=== PATIENT | male | born 1970 | race Caucasian/White ===

== ENCOUNTER 2016-09-22 09:22 | Emergency (ER) ==
[2016-09-22 09:51] LABS: MANUAL DIFF NEEDED? NO
[2016-09-22 09:52] LABS: BASO% 0.7 % (0.0-0.8); EOS# 0.15 X1000 (0.0-0.7); EOS% 3.6 % (0.0-10.0); HEMATOCRIT 39.5 % (42.0-52.0); LYMPH# 1.24 X1000 (1.2-3.4); LYMPH% 29.7 % (20.5-51.1); MCH 30.8 PG (27-31); MCHC 35.4 g/dL (33-37); MONO# 0.42 X1000 (0.11-0.59); MPV 10.9 FL (7.4-10.4); PLT 166 X1000 (130-400); RBC 4.54 XMIL (4.7-6.1)
[2016-09-22 09:57] LABS: URINE CULTURE NEEDED? NO; URINE MICRO REVIEW NEEDED? NO; URINE SOURCE CLEAN CATCH
[2016-09-22 10:00] LABS: BILIRUBIN URINE NEGATIVE (NEGATIVE); BLOOD URINE NEGATIVE (NEGATIVE); COLOR YELLOW; GLUCOSE URINE >1000 mg/dL (NEGATIVE); LEUKOCYTES URINE NEGATIVE (NEGATIVE); NITRITE URINE NEGATIVE (NEGATIVE); PH URINE 6.5; PROTEIN URINE TRACE mg/dL (NEGATIVE); SP GRAVITY URINE 1.028; TURBIDITY URINE CLEAR (CLEAR); UROBILINOGEN URINE NORMAL (NORMAL)
[2016-09-22 10:01] LABS: UR EPITHELIAL CELLS <10 /HPF (<10); URINE BACTERIA NEGATIVE /HPF; URINE RBC <10 /HPF (<10); URINE WBC <10 /HPF (<10)
[2016-09-22 10:10] LABS: AGAP 14; ALBUMIN 4.2 g/dL (3.5-5.0); ALKALINE PHOSPHATASE 111 U/L (32-122); AMYLASE 31 U/L (20-200); BUN 16 mg/dL (8-22); CALCIUM 8.6 mg/dL (8.8-10.2); CHLORIDE 100 mmol/L (98-107); COSMO 283; GOT 67 U/L (10-34); GPT 77 U/L (10-44); LIPASE 27 U/L (13-60); POTASSIUM 4.2 mmol/L (3.5-5.1); SODIUM 135 mmol/L (136-145); TCO2 21 mmol/L (25-35); TOTAL BILIRUBIN 0.36 mg/dL (0.20-1.00)
[2016-09-22] MEDS ORDERED: NS 1,000 ML IV ONE (10:25)
--- NOTE | 2016-09-22 10:30 | PROVIDER DOCUMENTATION ---
HPI-Abdominal Pain/GI Problem - General Source: patient - History of Present Illness-ABD Nature of Presenting Problems: Pt is a 46 yom who came to the ED with a cc of abdominal pain and constipation. Pt reports he has been constipated for 3-4 days and reports he had a colon resection in 2000. Pt reports he is unable to have a bowel movement. Abdominal Pain Onset Location: reports: LLQ Pain Radiation: reports: no radiation Quality of Pain: reports: cramping Severity in ED: reports: mild Onset/Duration: reports: 4 days ago Timing: reports: still present Activities at Onset: reports: none Modifying Factors: improves with: nothing Associated Symptoms: reports: constipation Last BM: 4 days ago Dark Stools Present?: reports: none noticed Rectal Bleeding: reports: none Rectal Pain: reports: none Emesis Description: reports: none Bruising or Bleeding Gums?: No Similar Symptoms Previously?: No Recently seen or treated by another doctor?: No <Socorro Mckeon - Last Filed: 09/22/16 10:24> <Jesus Thompson - Last Filed: 09/22/16 11:04> <Saloni Spears - Last Filed: 09/22/16 12:42> - General Chief Complaint: Abdominal Pain Stated Complaint: LOWER ABD PAIN Time Seen by Provider: 09/22/16 09:36 Allergies/Adverse Reactions: Patient Allergies Allergy/AdvReac Type Severity Reaction Status Date / Time No Known Allergies Allergy Verified 09/22/16 10:21 Home Medications: Home Medication List Medication Instructions Recorded Confirmed Last Taken Type Captopril 50 mg PO BID 10/05/12 09/22/16 09/22/16 08:00 History Ezetimibe [Zetia] 10 mg PO QHS 10/05/12 09/22/16 09/22/16 08:00 History Gabapentin [Neurontin] 900 mg PO BID 10/05/12 09/22/16 09/22/16 08:00 History Gemfibrozil [Lopid] 600 mg PO BID 10/05/12 09/22/16 09/22/16 08:00 History Isosorbide Mononitrate E.r. [Imdur] 60 mg PO DAILY 10/05/12 09/22/16 09/22/16 08 :00 History Omeprazole [Prilosec] 20 mg PO HS 10/05/12 09/22/16 09/21/16 22:00 History Rosuvastatin Calcium [Crestor] 40 mg PO QHS 10/05/12 09/22/16 09/21/16 22:00 History Hydrochlorothiazide 12.5 mg PO QAM 02/15/13 09/22/16 09/22/16 08:00 History Aspirin 2 tab PO DAILY 08/30/15 09/22/16 09/22/16 08:00 History Carvedilol [Coreg] 6.25 mg PO BID 08/30/15 09/22/16 09/22/16 08:00 History Insulin Glargine [Lantus] 60 unit SUBQ QHS 08/30/15 09/22/16 09/21/16 22:00 History Insulin Lispro [Humalog] 5 unit SUBQ BID 08/30/15 09/22/16 11/17/15 History Naproxen Sodium [Aleve] 220 mg PO BID 08/30/15 09/22/16 09/21/16 22:00 History Ondansetron [Zofran] 4 mg PO Q6H PRN PRN #15 tablet 09/22/16 Unknown Rx Peg 3350/Na Sulf,Bicarb,Cl/KCl 4,000 ml PO DIRECTED #1 bottle 09/22/16 Unknown Rx [Golytely] Review of Systems - Adult - REVIEW OF SYSTEMS - ADULT Constitutional: denies: chills, fever Eyes: reports: no symptoms reported Ears, Nose, Mouth & Throat: denies: epistaxis, mouth/dental pain Cardiovascular: reports: no symptoms reported Respiratory: denies: hemoptysis, wheezing Gastrointestinal: reports: abdominal pain, constipation. denies: diarrhea, nausea, vomiting Genitourinary: reports: no symptoms reported Musculoskeletal: reports: no symptoms reported Integumentary: reports: no symptoms reported Neurological: reports: no symptoms reported Psychiatric: reports: no symptoms reported Endocrine: reports: no symptoms reported Hematologic/Lymphatic: reports: no symptoms reported Allergic/Immunologic: reports: no symptoms reported All Other Systems: Reviewed and Negative <Socorro Mckeon - Last Filed: 09/22/16 10:24> Past History - Adult - PAST MEDICAL HISTORY-ADULT Review of Records: reports: Old Records Reviewed, Nursing Assessment Review Major Childhood Illnesses: reports: denies history Cardiovascular: reports: cardiac disease, CAD, HTN, other (triple bypass) Respiratory: reports: denies history Gastrointestinal: reports: denies history Obstetrical/Gynecological: reports: denies history Genitourinary: reports: kidney stones Musculoskeletal: reports: denies history Neurological: reports: CVA Endocrine/Immune: reports: Diabetes Other Conditions: reports: denies history - PRIOR SURGERIES/PROCEDURES Surgical/Procedure History: reports: bowel surgery - IMMUNIZATION STATUS Childhood Immunizations: See Nurse Assessment Flu Vaccine: See Nurse Assessment - FAMILY HISTORY Family History: reviewed, not pertinent <Socorro Mckeon - Last Filed: 09/22/16 10:24> Physical Exam-General - PHYSICAL EXAM-ADULT Initial Vital Signs Reviewed: Yes - CONSTITUTIONAL General Appearance: appears well, mild distress - EYES Eyes: PERRL/EOMI - HEAD, EARS, NOSE, MOUTH & THROAT HENMT: normocephalic/atraumatic, moist mucous membranes, normal ENT inspection, TMs normal, pharynx normal - NECK Neck: non-tender - RESPIRATORY Respiratory: chest non-tender, lungs clear - CARDIOVASCULAR Cardiovascular: normal peripheral pulses, regular rate, rhythm, no edema, no gallop, no JVD - GASTROINTESTINAL (ABDOMEN) Abdominal Exam: guarding, tenderness (LLQ) - MUSCULOSKELETAL Back Exam: normal inspection Extremity: normal gait - SKIN Integumentary: normal turgor, warm/dry - NEUROLOGIC Neurologic: grossly normal - PSYCHIATRIC Psych/Mental Status: normal mood/affect, normal thought content, normal thought process, oriented x 3 <Socorro Mckeon - Last Filed: 09/22/16 10:24> Progress - PLAN OF CARE/RESULTS Progress/Plan/Lab Results: Vital Signs - 24 hr 09/22/16 09:33 Temperature 97.6 F Pulse Rate 80 Respiratory 20 Rate Blood Pressure 148/87 O2 Sat by Pulse 99 Oximetry Orders Category Date Time Status NPO Diet 09/22/16 09:36 Active ABDOMEN FLAT/UPRIGHT [RAD] Stat Exams 09/22/16 09:[address] ABD/PELVIS W/ IV CONT ONLY [CT] Stat Exams 09/22/16 10:06 Ordered AMYLASE [CHEM] Stat Lab 09/22/16 09:39 Completed CBC WITH ELECTRONIC DIFF [HEME] Stat Lab 09/22/16 09:39 Completed COMPREHENSIVE METABOLIC PANEL [CHEM] Stat Lab 09/22/16 09:39 Completed LIPASE [CHEM] Stat Lab 09/22/16 09:39 Completed URINALYSIS W/POSS RFLX CULT [URINALYSIS] Stat Lab 09/22/16 09:44 Completed Laboratory Tests 09/22/16 09/22/16 09/22/16 09:39 09:39 09:44 WBC 4.18 L RBC 4.54 L Hgb 14.0 Hct 39.5 L MCV 87.0 MCH 30.8 MCHC 35.4 RDW Std Deviation 12.7 Plt Count 166 MPV 10.9 H Immature Gran % (Auto) 0.0 Neut % (Auto) 56.0 Lymph % (Auto) 29.7 [place] % (Auto) 10.0 H Eos % (Auto) 3.6 Baso % (Auto) 0.7 Immature Gran # (Auto) 0.00 Neut # (Auto) 2.34 Lymph # (Auto) 1.24 [place] # (Auto) 0.42 Eos # (Auto) 0.15 Baso # (Auto) 0.03 Sodium 135 L Potassium 4.2 Chloride 100 Carbon Dioxide 21 L Anion Gap 14 BUN 16 Creatinine 0.9 Estimated GFR/1.73 m2 > 60 BUN/Creatinine Ratio 18 Glucose 306 H Calculated Osmolality 283 Calcium 8.6 L Total Bilirubin 0.36 AST 67 H ALT 77 H Alkaline Phosphatase 111 Total Protein 8.0 Albumin 4.2 Globulin 3.8 Albumin/Globulin Ratio 1.1 Amylase 31 Lipase 27 Urine Source CLEAN CATCH Urine Color YELLOW Urine Turbidity CLEAR Urine pH 6.5 Ur Specific [place] 1.028 Urine Protein TRACE A Ur Glucose (Stick) >1000 A Ur Ketones (Stick) TRACE A Urine Blood NEGATIVE Urine Nitrite NEGATIVE Urine Bilirubin NEGATIVE Urobilinogen Dipstick NORMAL Urine Leukocytes NEGATIVE Urine WBC (Auto) <10 Urine RBC (Auto) <10 U Epithel Cells (Auto) <10 Urine Bacteria (Auto) NEGATIVE <Socorro Mckeon - Last Filed: 09/22/16 10:24> - CHANGE OF SHIFT REPORT (ED Provider) Report Given and Care Transferred to:: Dr. Spears (ER MD Fellow) Time of Transfer: 10:00 Items Pending: Labs, CT/MRI Results Tentative Impression of Patient: CONSTIPATION, R/O OBSTRUCTION VS. ILLEUS <Jesus Thompson - Last Filed: 09/22/16 11:04> Departure <Socorro Mckeon - Last Filed: 09/22/16 10:24> <Jesus Thompson - Last Filed: 09/22/16 11:04> - Departure Time of Disposition Order: 12:35 Certified Medical Emergency: Emergent <Saloni Spears - Last Filed: 09/22/16 12:42> - Departure DIAGNOSIS: Constipation, Hyperglycemia due to type 2 diabetes mellitus Disposition: HOME 01 Condition: Stable Additional Instructions: Rest. Take golytely liquid- one glass every 15 minutes until several soft stools. Check finger stick glucose regularly. Call your doctor for further evaluation if your are experiencing symptoms still tomorrow. ED Follow Up Instructions: You have been treated by a care provider in the Emergency Department. These instructions are being provided to you so you can have an understanding of how to care for yourself upon discharge. Upon discharge from the Emergency Department, you are responsible for making arrangements for follow-up care by a physician of your choice. Take all prescribed medications as directed. Return to the Emergency Department immediately for any new or worsening symptoms. You may call the Physician Referral phone number at [phone] to obtain a list of Physicians who are taking new patients. Prescriptions: Peg 3350/Na Sulf,Bicarb,Cl/KCl [Golytely] 4,000 ml PO DIRECTED #1 bottle Ondansetron [Zofran] 4 mg PO Q6H PRN PRN #15 tablet PRN Reason: Vomiting Attestation - Scribe Verification/Attestation Scribe:: Socorro Mckeon Acting as Scribe for:: Jesus Thompson Scribe documention review:: This chart was documented by a scribe and accurately reflects the service the provider performed and the decisions made by the provider. <Socorro Mckeon - Last Filed: 09/22/16 10:24> - Physician/ JACKY Attestation Patient care was provided by Advanced Practice Provider:: Yes Advanced Practice Provider:: Jesus Thompson Advanced Practice Provider documentation review:: The Mid-level provider documentation, treatment plan and medical decision making was reviewed by the physician who agrees with all treatment and medical decision making by the MLP. The physician spent face to face time with patient:: Yes Advanced Practice Provider documentation review:: The physician spent face to face time with this patient and agrees with all MLP documentation, treatment, and medical decision making by the MLP. See provider notes for further information. <Jesus Thompson - Last Filed: 09/22/16 11:04> Physician Attestation - Physician Attestation I, the provider, attest to the following statement:: Jesus Thompson Physician documentation Attestation:: This documentation recorded by the scribe accurately reflects the service I personally performed and the decisions made by me. <Jesus Thompson - Last Filed: 09/22/16 11:04> - Physician Attestation I, the provider, attest to the following statement:: Saloni Spears Physician documentation Attestation:: This documentation recorded by the scribe accurately reflects the service I personally performed and the decisions made by me. <Saloni Spears - Last Filed: 09/22/16 12:42>
--- NOTE | 2016-09-22 12:42 | Diag Imaging Result Document ---
PROCEDURE NAME: CT ABD/PELVIS W/ IV CONT ONLY - 09/22/2016 CT ABDOMEN AND PELVIS WITH IV CONTRAST: COMPARISON: 01/06/2016. FINDINGS: There is diffuse hepatic steatosis. There has been a previous cholecystectomy. There is a stable moderate-size left renal cyst. There is no hydronephrosis. There is a stable surgical staple line associated with the proximal sigmoid colon. There is no evidence of bowel obstruction. There are no pericecal inflammatory changes. No other definite inflammatory change is identified. No free abdominal gas or free fluid is identified. The remainder of the solid viscera of the abdomen and pelvis and the remainder of the GI tract is essentially unremarkable. IMPRESSION: Incidental/nonacute findings detailed above that are grossly stable. No definite acute pathology.
[2016-09-22 13:32] VITALS: BP 120/78
--- NOTE | 2016-09-22 16:02 | Diag Imaging Result Document ---
PROCEDURE NAME: ABDOMEN FLAT/UPRIGHT - 09/22/2016 FLAT AND UPRIGHT RADIOGRAPH OF THE ABDOMEN, 3 VIEWS: COMPARISON: 04/07/2014. FINDINGS: There are unremarkable bowel gas and stool patterns. There is no evidence of bowel obstruction. There is no evidence of large volume free abdominal gas. There is no definite organomegaly. IMPRESSION: No evidence of acute abdominal pathology identified.
== END 2016-09-22 13:32 | disposition home or self-care (01) ==
LOC: ED 09:22
DX: K59.00 Constipation, unspecified (principal); E11.65 Type 2 diabetes mellitus with hyperglycemia; R10.32 Left lower quadrant pain; R10.814 Left lower quadrant abdominal tenderness; I25.10 Atherosclerotic heart disease of native coronary artery without angina pectoris; I10 Essential (primary) hypertension; Z79.82 Long term (current) use of aspirin; Z79.4 Long term (current) use of insulin; Z79.899 Other long term (current) drug therapy; Z86.73 Personal history of transient ischemic attack (TIA), and cerebral infarction without residual deficits; Z87.442 Personal history of urinary calculi; Z95.1 Presence of aortocoronary bypass graft
CPT/HCPCS: 74020; 74177; 80053; 81001; 82150; 82948; 83690; 85025; J7030; Q9967

== ENCOUNTER 2019-01-17 20:07 | Inpatient (IN) ==
[2019-01-17] MEDS ORDERED: SOLU-MEDROL IV ONE (20:33)
[2019-01-17] MEDS ORDERED: BENADRYL IV ONE (20:33)
[2019-01-17] MEDS ORDERED: EPINEPHRINE IM ONE (20:33)
--- NOTE | 2019-01-17 20:40 | PROVIDER DOCUMENTATION ---
HPI-General Adult - General Chief Complaint: Allergic Reaction Stated Complaint: ALLERGIC RXN, LIPS, THROAT SWELLING Time Seen by Provider: 01/17/19 20:32 Source: patient, family () Allergies/Adverse Reactions: Patient Allergies Allergy/AdvReac Type Severity Reaction Status Date / Time No Known Allergies Allergy Verified 04/19/18 11:45 Home Medications: Home Medication List Medication Instructions Recorded Confirmed Last Taken Type Captopril 50 mg PO BID 10/05/12 04/19/18 04/19/18 History Ezetimibe [Zetia] 10 mg PO QHS 10/05/12 04/19/18 04/18/18 History Gabapentin [Neurontin] 900 mg PO BID 10/05/12 04/19/18 04/19/18 History Gemfibrozil [Lopid] 600 mg PO BID 10/05/12 04/19/18 04/19/18 History Isosorbide Mononitrate E.r. [Imdur] 60 mg PO DAILY 10/05/12 04/19/18 04/19/18 History Omeprazole [Prilosec] 20 mg PO HS 10/05/12 04/19/18 04/18/18 History Rosuvastatin Calcium [Crestor] 40 mg PO QHS 10/05/12 04/19/18 04/18/18 History Hydrochlorothiazide 12.5 mg PO QA 02/15/13 04/19/18 04/19/18 History Aspirin 1 tab PO DAILY 08/30/15 04/19/18 04/19/18 History Carvedilol [Coreg] 6.25 mg PO BID 08/30/15 04/19/18 04/19/18 History Insulin Glargine [Lantus] 60 unit SUBQ QHS 08/30/15 04/19/18 04/18/18 History Insulin Lispro [Humalog] 18 unit SUBQ BID 08/30/15 04/19/18 11/17/15 History Folic Acid 1 mg PO DAILY 01/14/18 04/19/18 04/19/18 History Metformin E.r. [Glucophage Xr] 1,000 mg PO QHS 01/14/18 04/19/18 04/18/18 History Metformin E.r. [Glucophage Xr] 500 mg PO DAILY 01/14/18 04/19/18 04/19/18 History Methotrexate Sodium/Pf 0.8 ml SQ ORDERED 01/14/18 04/19/18 04/12/18 History [Methotrexate 1 gm Vial] Nitroglycerin [Nitroquick] 0.4 mg SL PRN PRN 01/14/18 04/19/18 Unknown History Ondansetron [Zofran Odt] 8 mg PO TID #30 tab.rapdis 01/18/18 04/19/18 04/18/18 Rx Acetaminophen [Tylenol] 500 mg PO Q4H PRN PRN #20 tab 02/25/18 04/19/18 Unknown Rx Loperamide HCl [Loperamide] 2 mg PO BID 10 Days #30 tab 04/19/18 Unknown Rx Metoclopramide HCl [Reglan] 5 mg PO 4XDAY 04/19/18 04/19/18 04/19/18 History Albuterol Sulfate [Albuterol 8.5 gm INHALATION Q4-6H PRN PRN #1 11/07/18 Unknown Rx Sulfate Hfa] hfa.aer.ad Benzonatate [Tessalon] 100 mg PO TID PRN PRN #20 cap 11/07/18 Unknown Rx - History of Present Illness -Gen Adult Nature of Presenting Problems: 48 y/o WM c/o facial swelling and allergic reaction to unknown that started at 7am today. has given several rounds of benadryl since this am without much improvement. Pt denies any new meds or potential allergens. Location of Pain/Injury: reports: face (swelling to lips and cheeks.) Pain Radiation: reports: no radiation Quality of Pain: reports: none Severity: reports: moderate Onset/Duration: reports: this morning Timing: reports: still present Context/Activities at Onset: reports: light activity Modifying Factors: improves with: nothing Associated Symptoms: reports: cough, other (swelling to lips and cheeks since this am) Similar Symptoms Previously?: No Recently seen or treated by another doctor?: No Review of Systems - Adult - REVIEW OF SYSTEMS - ADULT Constitutional: reports: no symptoms reported, see HPI Eyes: reports: no symptoms reported, see HPI Ears, Nose, Mouth & Throat: reports: no symptoms reported, see HPI, other (lips and other facial swelling) Cardiovascular: reports: no symptoms reported, see HPI Respiratory: reports: no symptoms reported, see HPI Gastrointestinal: reports: no symptoms reported, see HPI Genitourinary: reports: no symptoms reported, see HPI Musculoskeletal: reports: no symptoms reported, see HPI Integumentary: reports: no symptoms reported, see HPI Neurological: reports: no symptoms reported, see HPI Psychiatric: reports: no symptoms reported, see HPI Endocrine: reports: no symptoms reported, see HPI Hematologic/Lymphatic: reports: no symptoms reported, see HPI Allergic/Immunologic: reports: no symptoms reported, see HPI All Other Systems: Reviewed and Negative Past History - Adult - PAST MEDICAL HISTORY-ADULT Review of Records: reports: Nursing Assessment Review, Medications Reviewed, Social history reviewed & non-contributory. Major Childhood Illnesses: reports: denies history Cardiovascular: reports: cardiac disease, CAD, HTN, hyperlipidemia, other (triple bypass) Respiratory: reports: denies history Gastrointestinal: reports: denies history, diverticulosis, GERD Obstetrical/Gynecological: reports: denies history Genitourinary: reports: kidney stones Musculoskeletal: reports: denies history Neurological: reports: CVA, TIA Psychiatric: reports: denies history Endocrine/Immune: reports: Diabetes Other Conditions: reports: denies history - PRIOR SURGERIES/PROCEDURES Surgical/Procedure History: reports: CABG, cholecystectomy, bowel surgery (colon resection), other (lithrotripsy) - IMMUNIZATION STATUS Childhood Immunizations: See Nurse Assessment Flu Vaccine: See Nurse Assessment - FAMILY HISTORY Family History: reviewed, not pertinent Physical Exam-General - PHYSICAL EXAM-ADULT Initial Vital Signs Reviewed: Yes - CONSTITUTIONAL General Appearance: appears well, alert, no apparent distress - EYES Eyes: PERRL/EOMI - HEAD, EARS, NOSE, MOUTH & THROAT HENMT: normocephalic/atraumatic, moist mucous membranes, TMs normal, pharynx normal, angioedema (to both lips. No oropharyngeal swelling or erythema) - NECK Neck: non-tender, full range of motion, supple, normal inspection - RESPIRATORY Respiratory: chest non-tender, lungs clear, normal breath sounds, no pleuratic chest pain, no respiratory distress, no accessory muscle use - CARDIOVASCULAR Cardiovascular: normal peripheral pulses, regular rate, rhythm, no gallop, no JVD, no murmur - GASTROINTESTINAL (ABDOMEN) Abdominal Exam: normal bowel sounds, non tender, soft, no organomegaly, no pulsatile mass - LYMPHATIC Lymphatic: no adenopathy - MUSCULOSKELETAL Back Exam: normal inspection, no CVA tenderness, no vertebral tenderness Extremity: normal range of motion, non-tender, normal gait, normal inspection, no pedal edema, no calf tenderness - SKIN Integumentary: normal color, normal turgor, warm/dry - NEUROLOGIC Neurologic: caramel cutter hand II-XII nml as tested, grossly normal, no motor/sensory deficits - PSYCHIATRIC Psych/Mental Status: normal mood/affect, normal thought content, normal thought process, oriented x 3 Progress - PLAN OF CARE/RESULTS Progress/Plan/Lab Results: Vital Signs - 8 hr 01/17/19 20:26 Temperature 97.9 F Pulse Rate 94 H Respiratory Rate 18 Blood Pressure 130/81 O2 Sat by Pulse Oximetry 99 Orders Category Date Time Status CBC WITH ELECTRONIC DIFF [HEME] Stat Lab 01/17/19 20:33 Uncollected COMPREHENSIVE METABOLIC PANEL [CHEM] Stat Lab 01/17/19 20:33 Uncollected TROPONIN T Stat Lab 01/17/19 20:34 Ordered UA [URINALYSIS] [URINALYSIS] Stat Lab 01/17/19 20:33 Uncollected Diphenhydramine [Benadryl] Med 01/17/19 20:33 Once 25 mg IV NOW ONE Epinephrine Med 01/17/19 20:33 Once 0.3 mg IM NOW ONE Methylprednisolone Sod Succ [Solu-Medrol] Med 01/17/19 20:33 Once 125 mg IV NOW ONE EKG [EKG] Stat Ther 01/17/19 20:33 Ordered Result Diagrams: 01/17/19 20:55 - CONSULTS/PCP/HOSPITALIST Notification #1 *Consult/PCP/Hospitalist*: Dr Munoz Time Discussed: 22:42 Consult Disposition: Will see in ED, Admit Departure - Departure Date of Disposition Decision: 01/17/19 Time of Disposition Decision: 22:42 DIAGNOSIS: Angioedema, Acute allergic reaction Disposition: ADMITTED INPATIENT 09 Certified Medical Emergency: Emergent Condition: Fair Referrals and Follow-Ups: Jeyson Richey MD [Primary Care Provider] - - Critical Care Note This patient required my direct & personal management of CC.: No Attestation - Physician/ JACKY Attestation Patient care was provided by Advanced Practice Provider:: No The physician spent face to face time with patient:: Yes Advanced Practice Provider documentation review:: Supervising physician onsite and consulted in the evaluation and care of this patient. The physician did have a face to face encounter with the patient.
[2019-01-17] MEDS ORDERED: ZOFRAN IV ONE (21:21)
[2019-01-17 22:34] LABS: URINE SOURCE CLEAN CATCH
[2019-01-17 22:38] LABS: BASO# 0.02 X1000 (0.0-0.2); BASO% 0.3 % (0.0-0.8); EOS# 0.16 X1000 (0.0-0.7); EOS% 2.7 % (0.0-10.0); HEMATOCRIT 36.8 % (42.0-52.0); IMM GRAN# 0.02 X1000 (0.0-0.04); IMM GRAN% 0.3 % (0.0-0.5); LYMPH# 1.42 X1000 (1.2-3.4); MCH 30.7 PG (27-31); MCHC 35.3 g/dL (33-37); MONO# 0.68 X1000 (0.11-0.59); MONO% 11.5 % (1.7-9.3); NEUT# 3.62 X1000 (1.4-6.5); NEUT% 61.2 % (42.2-75.2); PLT 161 X1000 (130-400); RBC 4.23 XMIL (4.7-6.1); RDW 13.2 % (11.5-14.5); WBC 5.92 X1000 (4.8-10.8)
[2019-01-17 22:39] LABS: BILIRUBIN URINE NEGATIVE (NEGATIVE); BLOOD URINE NEGATIVE (NEGATIVE); COLOR YELLOW; GLUCOSE URINE >1000 mg/dL (NEGATIVE); KETONE URINE NEGATIVE (NEGATIVE); LEUKOCYTES URINE NEGATIVE (NEGATIVE); NITRITE URINE NEGATIVE (NEGATIVE); PH URINE 5.5; PROTEIN URINE NEGATIVE (NEGATIVE); SP GRAVITY URINE 1.033; TURBIDITY URINE CLEAR (CLEAR); UROBILINOGEN URINE NORMAL (NORMAL)
[2019-01-17 22:40] LABS: UR EPITHELIAL CELLS <10 /HPF (<10); URINE BACTERIA NEGATIVE /HPF; URINE RBC <10 /HPF (<10); URINE WBC <10 /HPF (<10)
--- NOTE | 2019-01-17 22:41 | ED EKG INTERP ---
This chart was entered by Crista Miranda Scribe, acting as scribe for Ji Falcon MD. EKG Interpretation - EKG Time of EKG reading by physician:: 21:53 EKG Read and Signed by:: Ji Falcon EKG Interpretation (*Must complete 3 of following elements*): Normal Rate: 93 Rhythm: sinus rhythm with 1st degree AV block [place]: normal [place] Interval: normal ST Wave: normal Attestation - Physician/ JACKY Attestation Patient care was provided by Advanced Practice Provider:: No The physician spent face to face time with patient:: Yes Advanced Practice Provider documentation review:: Supervising physician onsite and consulted in the evaluation and care of this patient. The physician did have a face to face encounter with the patient. This chart was documented by the indicated scribe, (Crista Miranda, [place]) and accurately reflects the services I performed and decisions made by me, Ji Falcon MD, as attested by the provider's signature.
[2019-01-17 22:51] LABS: AGAP 18; ALB/GLOB RATIO 1.4; ALBUMIN 4.6 g/dL (3.5-5.0); ALKALINE PHOSPHATASE 100 U/L (32-122); BUN 19 mg/dL (8-22); CALCIUM 9.8 mg/dL (8.8-10.2); CHLORIDE 98 mmol/L (98-107); COSMO 292; ESTIMATED GFR > 60; GLUCOSE 387 mg/dL (70-104); GOT 48 U/L (10-34); GPT 43 U/L (10-44); POTASSIUM 3.7 mmol/L (3.5-5.1); SODIUM 137 mmol/L (136-145); TCO2 21 mmol/L (25-35); TOTAL BILIRUBIN 0.47 mg/dL (0.20-1.00); TOTAL PROTEIN 7.8 g/dL (6.3-8.3)
--- NOTE | 2019-01-17 23:17 | EKG Report ---
Test Performed on : 01/17/2019 9:53:54 PM Test Reason : allergic reaction Blood Pressure : / mmHG Vent. Rate : 093 BPM Atrial Rate : 093 BPM P-R Int : 214 ms QRS Dur : 100 ms QT Int : 356 ms P-R-T Axes : 040 062 025 degrees QTc Int : 442 ms Sinus rhythm. with 1st degree AV block. Otherwise normal ECG When compared with ECG of 06-NOV-2018 21:37, No significant change was found Unconfirmed Result
[2019-01-17] MEDS ORDERED: BENADRYL IV PRN (23:59)
[2019-01-17] MEDS ORDERED: HUMULIN R SUBQ ONE (23:59)
[2019-01-17] MEDS ORDERED: ZOFRAN IV PRN (23:59)
[2019-01-18] MEDS: SOLU-MEDROL IV SCH ×3 (00:51→15:06)
--- NOTE | 2019-01-18 02:57 | HISTORY AND PHYSICAL ---
PRIMARY CARE PHYSICIAN: Dr. Richey CHIEF COMPLAINT: Lip swelling. HISTORY OF PRESENTING ILLNESS: A 48-year-old male with a history of diabetes mellitus type 2, coronary disease, psoriasis, CVA, hypertension. Was brought to the emergency department due to lip swelling suddenly today. The patient states that it felt like initially his throat was also swelling. He was brought to the emergency department. He was treated appropriately for possible angioedema and due to his presenting symptoms he will require admission for further management. Apparently, patient was also on an TRACI inhibitor in the past. However, he states that he has not taken medicines for over 3 weeks. At time of my examination, he had denied any headache, fever, chills, chest pain, shortness of breath or any weight changes, but is complaining of lip swelling. PAST MEDICAL HISTORY: Include diabetes mellitus type 2, coronary artery disease, psoriasis, GERD, CVA, AAA, hypertension. PAST SURGICAL HISTORY: Cholecystectomy, coronary artery bypass, colon resection, right carotid endarterectomy. ALLERGIES: No known drug allergies. CURRENT MEDICATIONS: Albuterol nebulizers q.6 hours, aspirin 325 mg p.o. daily, captopril 50 mg p.o. b.i.d., Coreg 6.25 mg p.o. b.i.d., Zetia 10 mg p.o. at bedtime, gabapentin 900 mg p.o. b.i.d., gemfibrozil 600 mg p.o. b.i.d., hydrochlorothiazide 12.5 mg p.o. q.a.m., Lantus 60 units subcutaneous at bedtime, Humalog 18 units subcutaneous b.i.d., isosorbide mononitrate 60 mg p.o. daily, metformin 500 mg daily, methotrexate as directed, nitroglycerin 0.4 mg sublingual p.r.n., omeprazole 20 mg p.o. at bedtime, rosuvastatin 40 mg p.o. at bedtime. SOCIAL HISTORY: He is a former smoker. No history of alcohol or illicit drug use. FAMILY HISTORY: Positive for coronary artery disease in mother. REVIEW OF SYSTEMS: Fourteen point review of systems as listed in HPI. Other systems negative. PHYSICAL EXAMINATION: GENERAL: Cooperative, friendly male. He is resting comfortably now. VITAL SIGNS: Temperature 97.9 degrees, pulse 94, respiration 18, blood pressure 130/81. HEENT: Atraumatic, normocephalic. Extraocular movements intact. PERRLA. Lips, there is moderate edema. NECK: No masses. CHEST: Clear to auscultation. CARDIOVASCULAR: Regular rate and rhythm. ABDOMEN: Soft, positive bowel sounds. EXTREMITIES: Trace edema. NEUROLOGIC: He is awake, alert, oriented x3. GENITOURINARY: No bladder distention. SKIN: Warm. LABORATORIES AND STUDIES: WBCs 5.92, hemoglobin 13.1, hematocrit 36.8, platelets 161,000. Sodium 137, potassium 3.7, chloride 98, CO2 is 21, BUN is 19, creatinine is 1.0, glucose is 87. ASSESSMENT: This is a 48-year-old male with a history of diabetes mellitus type 2, hypertension, gastroesophageal reflux disease, psoriasis and cerebrovascular accident, who presented to the emergency department with a 1-day history of sudden onset of swelling of his lips and throat region. He was evaluated in the emergency department and due to his symptoms he will require admission for further management. 1. Angioedema, unclear if it is angiotensin-converting enzyme related. 2. Diabetes mellitus type 2. 3. Hypertension. 4. Gastroesophageal reflux disease. PLAN: 1. We will admit patient to medical floor with telemetry. 2. Continue supportive treatments with Benadryl and Solu-Medrol. 3. We will monitor blood glucose and put patient on sliding scale insulin regimen. 4. We will monitor blood pressure. Resume antihypertensive agent. 5. Restart other home medications except TRACI inhibitor. 6. We will put patient on DVT prophylaxis with SCD. 7. We will continue to follow, and reassess and make further recommendation based on patient's clinical course. cc: MD Jeyson Frank MD MTDD
[2019-01-18] MEDS ORDERED: HUMULIN R SUBQ ONE ×2 (03:46→18:49)
[2019-01-18 06:18] LABS: BASO# 0.01 X1000 (0.0-0.2); BASO% 0.2 % (0.0-0.8); EOS# 0.01 X1000 (0.0-0.7); EOS% 0.2 % (0.0-10.0); HEMATOCRIT 38.4 % (42.0-52.0); HEMOGLOBIN 13.5 g/dL (14.0-18.0); IMM GRAN# 0.02 X1000 (0.0-0.04); IMM GRAN% 0.3 % (0.0-0.5); LYMPH% 9.9 % (20.5-51.1); MCH 30.7 PG (27-31); MCHC 35.2 g/dL (33-37); MCV 87.3 FL (81-99); MONO# 0.12 X1000 (0.11-0.59); MPV 10.3 FL (7.4-10.4); NEUT# 5.33 X1000 (1.4-6.5); NEUT% 87.4 % (42.2-75.2); PLT 157 X1000 (130-400); RDW 13.5 % (11.5-14.5); WBC 6.09 X1000 (4.8-10.8)
[2019-01-18 06:37] LABS: AGAP 14; BUN 22 mg/dL (8-22); CALCIUM 9.3 mg/dL (8.8-10.2); CHLORIDE 99 mmol/L (98-107); COSMO 292; CREATININE 1.2 mg/dL (0.7-1.2); ESTIMATED GFR > 60; GLUCOSE 371 mg/dL (70-104); POTASSIUM 4.4 mmol/L (3.5-5.1); SODIUM 137 mmol/L (136-145); TCO2 24 mmol/L (25-35)
[2019-01-18] MEDS: HUMULIN R SUBQ SCH ×4 (07:01→22:13)
[2019-01-18] MEDS ORDERED: NITROGLYCERIN SL PRN (07:40)
--- NOTE | 2019-01-18 08:25 | PROGRESS NOTE ---
DATE: 01/18/2019 SUBJECTIVE: Mr. Santos is a 48-year-old, white gentleman admitted with swelling of the lips. Patient also had some throat swelling that started yesterday. Patient was camping. Came to the emergency room. Evaluated by ER physician. The patient is on captopril but not taking medication for the last 3 weeks. Because of angioedema, the patient was admitted for further care. The patient is noncompliant to medication and diet. He denied any fever or chills. No unusual cough or expectoration. No nausea, vomiting. Denied eating seafood. Known case of diabetes mellitus, poorly compliant. The patient was not taking his Lantus for the last few weeks. Not monitoring Accu-Chek properly. PAST MEDICAL HISTORY: Hypertension, diabetes, hyperlipidemia, psoriasis, coronary artery disease, CVA, osteoarthritis, gastritis and reflux disease. PHYSICAL EXAMINATION: His vital signs noted. Neck is supple. No JVD. The lip swelling improved Lungs: Bilateral good air entry present. CVS: S1 and S2 heard. Abdomen: Soft, nontender. Bowel sounds present. WAFER FABRICATION TECHNICIAN: Alert, awake. Answering questions fairly well. Able to move all 4 limbs. CONSIDERATION: 1. Angioedema. 2. Uncontrolled diabetes mellitus due to noncompliance. 3. Hyperlipidemia. 4. Hypertension. 5. Gastritis and reflux disease. PLAN: The patient is on steroids. We will continue home medicine. Monitor Accu-Chek. Close observation. Admission history and physical noted. Overall plan discussed with the patient and he is in agreement. cc: Jeyson Richey MD MTDSari
--- NOTE | 2019-01-18 08:37 | Diag Imaging Result Doc PS360 ---
EXAM: CHEST-2 VIEWS 01/18/2019 HISTORY: hypoxia TECHNIQUE: PA and lateral chest COMMENT: There are sternotomy wires and anterior mediastinal surgical clips. There is no evidence of acute cardiac or pulmonary disease and compared to 11/06/2018 there has been no significant change. IMPRESSION: Stable chest. Electronically signed by Carmine Aragon 01/18/2019 8:35 AM
[2019-01-18] MEDS ORDERED: IMDUR PO SCH (09:00)
[2019-01-18] MEDS ORDERED: ASPIRIN PO SCH (09:00)
[2019-01-18] MEDS ORDERED: NEURONTIN PO SCH (09:00)
[2019-01-18] MEDS ORDERED: LANTUS INSULIN SUBQ SCH (09:00)
[2019-01-18] MEDS: LOPID PO SCH ×2 (09:04→22:06)
[2019-01-18] MEDS: COREG PO SCH ×2 (09:05→22:07)
[2019-01-18] MEDS: HYDROCHLOROTHIAZIDE PO SCH (09:05)
[2019-01-18] MEDS: BENADRYL IV PRN (13:35)
[2019-01-18] MEDS ORDERED: HUMULIN R ONE (16:56)
[2019-01-18] MEDS: ZETIA PO SCH (22:06)
[2019-01-18] MEDS: CRESTOR PO SCH (22:06)
[2019-01-18] MEDS: NEURONTIN PO SCH (22:13)
[2019-01-18 22:30] LABS: ALLEN TEST YES; BE -1.7 mmoll (-3.0-3.0); BLOOD TYPE ARTERIAL; HCO3-(ACT) 23.5 mmoll (20.0-26.0); METHB 1.3 % (0.0-1.5); O2(CT) 18.1 mL/dL (15.0-23.0); O2HB 94.2 % (95.0-99.0); PCO2(98.6) 33 mmHg (35-45); PO2(98.6) 89 mmHg (60-100); SAMPLE BLOOD; SAO2 95.7 % (95.0-100.0); THB 13.6 g/dL (11.5-17.4); pH(98.6) 7.43 (7.35-7.45)
[2019-01-18 22:31] LABS: MODALITY ROOM AIR
[2019-01-18] MEDS ORDERED: D50W SYRINGE IV SCH (23:15)
[2019-01-18] MEDS ORDERED: HUMULIN R IV ONE (23:15)
[2019-01-18] MEDS ORDERED: HUMULIN R 100 UNIT in NS 100 ML IV SCH (23:15)
[2019-01-19] MEDS: PRILOSEC PO SCH (05:59)
[2019-01-19] MEDS: LANTUS INSULIN SUBQ SCH ×2 (07:43→09:21)
[2019-01-19 07:50] LABS: ALLEN TEST YES; BE -0.7 mmoll (-3.0-3.0); BLOOD TYPE ARTERIAL; HCO3-(ACT) 24.3 mmoll (20.0-26.0); METHB 1.3 % (0.0-1.5); O2(CT) 17.7 mL/dL (15.0-23.0); O2HB 94.3 % (95.0-99.0); PCO2(98.6) 36 mmHg (35-45); PO2(98.6) 92 mmHg (60-100); SAMPLE BLOOD; SAO2 96.1 % (95.0-100.0); THB 13.3 g/dL (11.5-17.4); pH(98.6) 7.42 (7.35-7.45)
[2019-01-19 07:51] LABS: MODALITY ROOM AIR
[2019-01-19] MEDS: HYDROCHLOROTHIAZIDE PO SCH (09:45)
[2019-01-19] MEDS: NEURONTIN PO SCH ×2 (09:45→21:27)
[2019-01-19] MEDS: COREG PO SCH ×2 (09:46→21:27)
[2019-01-19] MEDS: IMDUR PO SCH (09:46)
[2019-01-19 09:51] LABS: AGAP 15; ALB/GLOB RATIO 1.2; ALBUMIN 4.4 g/dL (3.5-5.0); ALKALINE PHOSPHATASE 80 U/L (32-122); BUN 22 mg/dL (8-22); CALCIUM 9.5 mg/dL (8.8-10.2); CHLORIDE 102 mmol/L (98-107); COSMO 286; ESTIMATED GFR > 60; GLUCOSE 92 mg/dL (70-104); GOT 34 U/L (10-34); GPT 39 U/L (10-44); POTASSIUM 3.3 mmol/L (3.5-5.1); SODIUM 142 mmol/L (136-145); TCO2 25 mmol/L (25-35); TOTAL BILIRUBIN 0.25 mg/dL (0.20-1.00); TOTAL PROTEIN 8.2 g/dL (6.3-8.3)
[2019-01-19] MEDS: LOPID PO SCH ×2 (09:54→21:26)
--- NOTE | 2019-01-19 10:01 | PROGRESS NOTE ---
DATE: 01/19/2019 SUBJECTIVE: Mr. Santos is doing fair. His lip swelling improved. He denied any fever or chills. No nausea or vomiting. Yesterday his blood sugar was high, lactate was minimally elevated, anion gap was 14. Blood gas revealed pH of 7.43. The patient was not acidotic. Patient was transferred to ICU, started on insulin drip. The patient is feeling better. He denied any chest pain or palpitations. Oral intake is fair. OBJECTIVE: His vital signs noted neck is supple. No JVD. Lungs: Bilateral good air entry present. Few basal crepitations. CVS: S1 and S2 heard. Abdomen: Soft, globular. Bowel sounds present. Patient does have rash of psoriasis on the knee and elbow. VEST MAKER: Alert awake able to move all 4 limbs. CONSIDERATION: 1. Uncontrolled diabetes. 2. Angioedema. 3. Hyperlipidemia. 4. Gastritis and reflux disease. 5. Coronary artery disease. PLAN: Plan is to give him Lantus, stop the insulin drip. Continue IV fluid. Continue rest of the medications overall plan discussed with the patient. He is in agreement. I am going to resume his Janumet. Close observation. cc: Jeyson Richey MD
[2019-01-19 10:04] LABS: BASO# 0.01 X1000 (0.0-0.2); BASO% 0.1 % (0.0-0.8); HEMATOCRIT 38.2 % (42.0-52.0); HEMOGLOBIN 13.4 g/dL (14.0-18.0); IMM GRAN# 0.05 X1000 (0.0-0.04); IMM GRAN% 0.5 % (0.0-0.5); LYMPH# 0.97 X1000 (1.2-3.4); LYMPH% 9.3 % (20.5-51.1); MCH 30.9 PG (27-31); MCHC 35.1 g/dL (33-37); MONO# 0.87 X1000 (0.11-0.59); MONO% 8.4 % (1.7-9.3); NEUT# 8.51 X1000 (1.4-6.5); NEUT% 81.7 % (42.2-75.2); PLT 183 X1000 (130-400); RBC 4.34 XMIL (4.7-6.1); RDW 13.3 % (11.5-14.5); WBC 10.41 X1000 (4.8-10.8)
[2019-01-19] MEDS: DUONEB (A & A) INH SCH ×2 (11:16→15:31)
[2019-01-19] MEDS ORDERED: KLOR-CON PO ONE (14:37)
[2019-01-19] MEDS: ROCEPHIN 1 GM in NS 50 ML IV SCH (16:41)
[2019-01-19] MEDS: HUMALOG SUBQ SCH ×2 (16:41→21:27)
[2019-01-19] MEDS: TESSALON PO PRN ×2 (16:41→22:39)
[2019-01-19] MEDS: ZETIA PO SCH (21:27)
[2019-01-19] MEDS: CRESTOR PO SCH (21:27)
[2019-01-20] MEDS: DUONEB (A & A) INH SCH ×5 (01:23→21:41)
[2019-01-20] MEDS: BENADRYL IV PRN ×4 (05:04→22:51)
[2019-01-20 06:17] LABS: BASO# 0.02 X1000 (0.0-0.2); BASO% 0.3 % (0.0-0.8); EOS# 0.14 X1000 (0.0-0.7); HEMATOCRIT 37.7 % (42.0-52.0); IMM GRAN# 0.03 X1000 (0.0-0.04); IMM GRAN% 0.4 % (0.0-0.5); LYMPH# 2.02 X1000 (1.2-3.4); LYMPH% 28.6 % (20.5-51.1); MCH 30.8 PG (27-31); MCHC 34.5 g/dL (33-37); MCV 89.3 FL (81-99); MONO# 0.63 X1000 (0.11-0.59); MONO% 8.9 % (1.7-9.3); MPV 10.8 FL (7.4-10.4); NEUT# 4.23 X1000 (1.4-6.5); NEUT% 59.8 % (42.2-75.2); PLT 185 X1000 (130-400); RBC 4.22 XMIL (4.7-6.1); RDW 13.6 % (11.5-14.5); WBC 7.07 X1000 (4.8-10.8)
[2019-01-20] MEDS: HUMALOG SUBQ SCH ×5 (06:42→21:51)
[2019-01-20] MEDS: TESSALON PO PRN ×3 (06:42→18:57)
[2019-01-20] MEDS: PRILOSEC PO SCH (06:42)
[2019-01-20 07:06] LABS: AGAP 16; ALB/GLOB RATIO 1.5; ALKALINE PHOSPHATASE 80 U/L (32-122); BUN 25 mg/dL (8-22); CALCIUM 8.7 mg/dL (8.8-10.2); CHLORIDE 101 mmol/L (98-107); COSMO 289; ESTIMATED GFR > 60; GLUCOSE 332 mg/dL (70-104); GOT 91 U/L (10-34); GPT 50 U/L (10-44); POTASSIUM 4.9 mmol/L (3.5-5.1); SODIUM 136 mmol/L (136-145); TCO2 19 mmol/L (25-35); TOTAL BILIRUBIN 0.24 mg/dL (0.20-1.00); TOTAL PROTEIN 6.7 g/dL (6.3-8.3)
[2019-01-20] MEDS: LOVENOX SUBQ SCH (07:28)
--- NOTE | 2019-01-20 07:41 | PROGRESS NOTE ---
DATE: 01/20/2019 SUBJECTIVE: Mr. Santos is doing fairly well complaining of itching. No skin rash. No fever or chills. No swelling of the lips or throat. His breathing is fairly satisfactory. Denied any nausea or vomiting. No dysuria. OBJECTIVE: Vital Signs: As noted. Neck: Supple. No JVD. Lungs: Bilateral good air entry present. No rales or rhonchi. CVS: S1 and S2 heard. No gallop or thrill. Abdomen: Soft. No distention. Bowel sounds present. CLIP WRAPPER: Alert, awake. Able to move all 4 limbs. Skin: The patient does have rash of psoriasis on the knee, elbow and hand. LABORATORY STUDIES: Blood gas done yesterday noted. CBC done today, hemoglobin 13, hematocrit 37.7, WBC count 7.07, and platelet count 185,000. Blood sugar was 352. I am going to resume his Glucophage and Januvia. Increase Lantus to 50 units. ASSESSMENT AND PLAN: Continue bronchodilator care, and antibiotics. Patient's problems includes angioedema. A chest x-ray done on 01/18 was stable chest, uncontrolled diabetes mellitus, bronchitis, and hyperlipidemia. Labs and medications noted. We will continue current treatment and close observation. Overall plan discussed with the patient and the , and they are in agreement. cc: Jeyson Richey MD
[2019-01-20] MEDS: NEURONTIN PO SCH ×3 (08:14→21:46)
[2019-01-20] MEDS: COREG PO SCH ×2 (08:14→21:47)
[2019-01-20] MEDS: IMDUR PO SCH (08:14)
[2019-01-20] MEDS: JANUVIA PO SCH (08:14)
[2019-01-20] MEDS: LOPID PO SCH ×2 (08:15→21:47)
[2019-01-20] MEDS: HYDROCHLOROTHIAZIDE PO SCH (08:15)
[2019-01-20] MEDS ORDERED: LANTUS INSULIN SUBQ SCH (09:00)
[2019-01-20] MEDS: ROCEPHIN 1 GM in NS 50 ML IV SCH (16:43)
[2019-01-20] MEDS ORDERED: NS 500 ML ONE (17:01)
[2019-01-20] MEDS: GLUCOPHAGE XR PO SCH (21:46)
[2019-01-20] MEDS: ZETIA PO SCH (21:47)
[2019-01-20] MEDS: CRESTOR PO SCH (21:47)
[2019-01-21] MEDS: DUONEB (A & A) INH SCH ×4 (03:22→22:57)
[2019-01-21] MEDS: PRILOSEC PO SCH (06:21)
[2019-01-21] MEDS: LOVENOX SUBQ SCH (06:21)
[2019-01-21] MEDS: TESSALON PO PRN ×2 (06:28→21:13)
[2019-01-21] MEDS: BENADRYL IV PRN ×3 (06:28→20:53)
[2019-01-21] MEDS: HUMALOG SUBQ SCH ×6 (06:32→21:13)
--- NOTE | 2019-01-21 07:25 | PROGRESS NOTE ---
DATE: 01/21/2019 SUBJECTIVE: Mr. Santos is doing fair. His new problem today is urticarial rash all over itching. No high-grade fever or chills. Patient does have cough with scanty sputum production. No nausea or vomiting. Blood sugar is still staying high. No typical chest pain or palpitations. No unusual shortness of breath. Lip swelling improved. His urine output is fair. OBJECTIVE: Vital signs noted.Neck: Supple. No JVD. Lungs: Bilateral good air entry present. Few basal crepitations. CVS: S1 and S2 heard. Abdomen: Soft, globular. Bowel sounds present. Skin: Patient does have rash of psoriasis on the knee and elbow. The patient does have urticarial rash on the torso, leg and arm. CUSTOM GARMENT DESIGNER: Alert, awake, and able to move all 4 limbs. CONSIDERATION: Urticaria. I am going to add Pepcid as an H2 gil, small dose of prednisone, increase his insulin. Monitor Accu-Chek. Close observation. Add small dose of prednisone. Watch patient for hypoglycemia. Overall plan discussed with the patient and . They are in agreement. I will add bronchodilator treatment with Symbicort in addition to his nebulizer treatment. We will check appropriate labs tomorrow. cc: Jeyson Richey MD
[2019-01-21] MEDS: SYMBICORT 160/4.5 MICROGM INHALER INH SCH ×2 (08:06→22:57)
[2019-01-21] MEDS: JANUVIA PO SCH (09:43)
[2019-01-21] MEDS: LOPID PO SCH ×2 (09:43→20:53)
[2019-01-21] MEDS: GLUCOPHAGE XR PO SCH (09:43)
[2019-01-21] MEDS: PREDNISONE PO SCH (09:43)
[2019-01-21] MEDS: PEPCID PO SCH ×2 (09:43→20:54)
[2019-01-21] MEDS: NEURONTIN PO SCH ×3 (09:44→20:53)
[2019-01-21] MEDS: LANTUS INSULIN SUBQ SCH (09:44)
[2019-01-21] MEDS: COREG PO SCH ×2 (09:44→20:54)
[2019-01-21] MEDS: ROCEPHIN 1 GM in NS 50 ML IV SCH (16:48)
[2019-01-21] MEDS: HYDROCHLOROTHIAZIDE PO SCH (16:54)
[2019-01-21] MEDS: IMDUR PO SCH (16:55)
[2019-01-21] MEDS: ZETIA PO SCH (20:54)
[2019-01-21] MEDS: CRESTOR PO SCH (20:54)
[2019-01-22] MEDS: DUONEB (A & A) INH SCH ×3 (05:11→16:25)
[2019-01-22 06:21] LABS: BASO# 0.01 X1000 (0.0-0.2); BASO% 0.2 % (0.0-0.8); EOS# 0.07 X1000 (0.0-0.7); EOS% 1.2 % (0.0-10.0); HEMATOCRIT 37.8 % (42.0-52.0); HEMOGLOBIN 13.3 g/dL (14.0-18.0); IMM GRAN# 0.05 X1000 (0.0-0.04); IMM GRAN% 0.9 % (0.0-0.5); LYMPH# 1.65 X1000 (1.2-3.4); LYMPH% 29.1 % (20.5-51.1); MCH 31.1 PG (27-31); MCHC 35.2 g/dL (33-37); MCV 88.3 FL (81-99); MONO# 0.37 X1000 (0.11-0.59); MONO% 6.5 % (1.7-9.3); MPV 10.6 FL (7.4-10.4); NEUT# 3.52 X1000 (1.4-6.5); NEUT% 62.1 % (42.2-75.2); PLT 188 X1000 (130-400); RBC 4.28 XMIL (4.7-6.1); RDW 13.1 % (11.5-14.5); WBC 5.67 X1000 (4.8-10.8)
[2019-01-22] MEDS: BENADRYL IV PRN ×2 (06:35→13:03)
[2019-01-22] MEDS: LOVENOX SUBQ SCH (06:35)
[2019-01-22] MEDS: PRILOSEC PO SCH (06:35)
[2019-01-22] MEDS: HUMALOG SUBQ SCH ×6 (06:37→17:00)
[2019-01-22 06:50] LABS: AGAP 13; BUN 19 mg/dL (8-22); CHLORIDE 99 mmol/L (98-107); COSMO 288; CREATININE 0.9 mg/dL (0.7-1.2); ESTIMATED GFR > 60; GLUCOSE 308 mg/dL (70-104); POTASSIUM 3.7 mmol/L (3.5-5.1); SODIUM 137 mmol/L (136-145); TCO2 25 mmol/L (25-35)
[2019-01-22 06:51] LABS: ALB/GLOB RATIO 1.1; ALBUMIN 3.7 g/dL (3.5-5.0); ALKALINE PHOSPHATASE 88 U/L (32-122); CALCIUM 9.1 mg/dL (8.8-10.2); GOT 22 U/L (10-34); GPT 34 U/L (10-44); MAGNESIUM 1.9 mg/dL (1.5-2.7); TOTAL BILIRUBIN 0.32 mg/dL (0.20-1.00)
--- NOTE | 2019-01-22 07:20 | PROGRESS NOTE ---
DATE: 01/22/2019 SUBJECTIVE: Mr. Santos is doing better. His urticarial rash improved. The patient still has some itching. He denied any nausea or vomiting. No diarrhea, blood or mucus in the stool. The patient denied any unusual cough or expectoration. Blood sugar result reviewed. OBJECTIVE: Vital signs noted. Neck is supple. No JVD. Lungs: Bilateral good air entry present. CVS: S1 and S2 heard. Abdomen soft, globular. Bowel sounds present.YARDER PUNCHER: Alert, awake, able to move all 4 limbs. The patient does have rash of psoriasis but no urticarial rash. No lip or tongue swelling. ASSESSMENT AND PLAN: Overall the patient seems to be doing better. His blood sugar is still staying high. I am going to increase Humalog. Continue Lantus. Discussed about hypoglycemia and precaution. The plan is to discharge the patient home this afternoon. cc: Jeyson Richey MD
[2019-01-22] MEDS: LOPID PO SCH ×2 (08:11→20:38)
[2019-01-22] MEDS: TESSALON PO PRN (08:11)
[2019-01-22] MEDS: HYDROCHLOROTHIAZIDE PO SCH (08:12)
[2019-01-22] MEDS: LANTUS INSULIN SUBQ SCH (08:13)
[2019-01-22] MEDS: JANUVIA PO SCH (08:13)
[2019-01-22] MEDS: NEURONTIN PO SCH ×3 (09:00→20:39)
[2019-01-22] MEDS: IMDUR PO SCH (09:00)
[2019-01-22] MEDS: COREG PO SCH ×2 (09:00→20:39)
[2019-01-22] MEDS: PEPCID PO SCH ×2 (09:00→20:39)
[2019-01-22] MEDS: GLUCOPHAGE XR PO SCH (09:00)
[2019-01-22] MEDS: PREDNISONE PO SCH (09:00)
[2019-01-22] MEDS: SYMBICORT 160/4.5 MICROGM INHALER INH SCH (12:16)
[2019-01-22] MEDS: ROCEPHIN 1 GM in NS 50 ML IV SCH (15:15)
[2019-01-22 20:22] VITALS: BP 127/82
[2019-01-22] MEDS: CRESTOR PO SCH (20:38)
[2019-01-22] MEDS: ZETIA PO SCH (20:39)
--- NOTE | 2019-01-26 15:25 | DISCHARGE SUMMARY ---
ADMISSION DATE: 01/17/2019 DISCHARGE DATE: 01/22/2019 FINAL DISCHARGE DIAGNOSES: 1. Angioedema. 2. Uncontrolled diabetes mellitus. 3. Hypertension. 4. Hyperlipidemia. 5. Coronary artery disease. 6. Psoriasis. 7. Urticaria. 8. Gastritis and reflux disease. 9. Acute bronchitis. 10. History of abdominal aortic aneurysm. 11. Chronic constipation. 12. History of right carotid endarterectomy. 13. History of cholecystectomy. 14. History of CABG. Mr. Santos is a 48-year-old white gentleman admitted with swelling of the lips, and also he had some throat swelling and difficulty breathing. The patient was on captopril, but patient was not taking it for last 2 to 3 weeks. The patient does have multiple medical problems, including uncontrolled diabetes mellitus, hypertension, hyperlipidemia, coronary artery disease, history of CVA. The patient is very noncompliant to followup and medication. The patient was also not taking his Lantus for a week. The patient claimed he cannot afford the medication. The patient was not going for followup with his pattern maker programer for the treatment of psoriasis. Patient was evaluated in the ER and admitted for further care. HOSPITAL COURSE: Patient was given some steroid, Benadryl. His clinical condition improved. The lip swelling improved. Hospital course complicated by uncontrolled diabetes. Blood sugar was very high, more than 500. The patient was transferred to ICU, started on insulin drip. There were no ketones, no evidence of diabetic ketoacidosis. The patient was treated appropriately, transferred back to the floor. The patient had episode of urticaria which was treated with low- dose prednisone. The patient also had during this hospitalization bronchitis which we treated with antibiotics, bronchodilator treatment, and symptomatic care. His clinical condition gradually improved. The patient was doing better. Chest congestion and cough improved. Lip swelling improved. Urticaria improved. The patient is still had rash of psoriasis. He had appointment to see his pattern maker programer on Friday, which is a . Patient was eager to go home. His is a nurse who can help managing his condition. I had lengthy discussion with patient about risk of noncompliance, risk of uncontrolled diabetes, hypertension, lipids. Patient and understood. They agreed to be compliant to the treatment. The patient understood by not being compliant there is increase risk of stroke, heart attack, and . I am going to see him back in the office in a week's time. I discharged him home on tapering dose of prednisone, oral antibiotics, bronchodilator treatment. Continue rest of the medicine. I increase his insulin. Overall discharge plan discussed at length with the patient. I evaluated the patient in the evening again, and patient was in satisfactory clinical condition to be discharged. LABORATORY DATA: Revealed last hemoglobin 13.3, hematocrit 37.8, WBC count 5.67, platelet count 188,000. Electrolytes were fairly benign. Blood sugar was 308. The acetone level was negative. Urinalysis was benign. Discharge plan discussed at length with the patient and , and they are in agreement. Chest x- ray was stable chest. cc: Jeyson Richey MD
== END 2019-01-22 20:45 | disposition home or self-care (01) | DRG 916 ==
LOC: ED 20:07 → 4N 23:31 → SUATTDRO 23:31 → 1N 01-18 14:07 → ICU 01-18 23:02 → 4N 01-19 18:42
PROVIDERS: ADMIT Internal Medicine; ATTEND Internal Medicine
CPT/HCPCS: 71020; 71046; 80048; 80053; 81001; 82009; 82805; 82947; 82948; 83735; 84484; 85025; 93005; 94640; 94761; 96372; 96374; 96375; 99285; A9270; J0171; J0696; J1200; J1650; J1815; J2405; J2930; J7040; J7506; J7512; XXXXX